=== PATIENT | male | born 1975 | race Caucasian/White ===

== ENCOUNTER 2018-07-26 03:02 | Emergency (ER) | payer OTHER ==
[2018-07-26 03:10] VITALS: BP 127/77
[2018-07-26] MEDS ORDERED: LORazepam 2 MG/ML SDV IM ONE (03:17)
[2018-07-26] MEDS ORDERED: OLANZapine 5 MG Tab PO ONE (03:25)
--- NOTE | 2018-07-26 03:25 | EDM.PDOC ---
ED HPI GENERAL MEDICAL PROBLEM - General Chief Complaint: Behavioral/Psych Stated Complaint: [facility] Time Seen by Provider: 07/26/18 03:19 Source of Information: Reports: Patient History Limitations: Reports: No Limitations - History of Present Illness INITIAL COMMENTS - FREE TEXT/NARRATIVE: 42-year-old male arrives in the ED per [facility]. 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 By history he takes olanzapine at bedtime-- dosage unknown and Prozac daily. Unclear if he is on a combination tablet. He was acting quite bizarre tonight indicating that he needed to stay away from all metals and is very concerned that he has bugs underneath his skin. He denies any street drug use such as methamphetamines. He states he has been taking his medications. He was very adamant that we test the skin sample that he provided to me indicating that a definite was not skin in that there is something crawling under his skin. He has obvious areas of both forearms were he has been picking. By history would suggest that he has bipolar affective disorder with psychotic breaks versus schizophrenia. Frustrated by the fact that we will check it is still skin sample that he provided to me under microscope. He states this is happened to him once before and they gave him a muscle relaxant and he got better. Difficult to get a good history from the patient. Onset: Unknown/Unsure Duration: Chronic Location: Reports: Generalized (Feels generalized sense of bugs crawling under his skin.) Quality: Reports: Other (formication) Severity: Moderate Improves with: Reports: None Worsens with: Reports: None Context: Reports: Other (Dropped off by the [facility] due to reported bizarre behavior in the workplace. 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 [No Known Home Meds] 07/09/16 [History] Past Medical History HEENT History: Reports: None Cardiovascular History: Reports: None Respiratory History: Reports: None Musculoskeletal History: Reports: None Endocrine/Metabolic History: Reports: None - Infectious Disease History Infectious Disease History: Reports: Chicken Pox - Past Surgical History HEENT Surgical History: Reports: None Cardiovascular Surgical History: Reports: None Musculoskeletal Surgical History: Reports: None Social & Family History - Family History Family Medical History: Noncontributory - Tobacco Use Smoking Status *Q: Current Every Day Smoker Years of Tobacco use: 22 Packs/Tins Daily: 0.5 - Caffeine Use Caffeine Use: Reports: None - Recreational Drug Use Recreational Drug Use: No - Living Situation & Occupation Living situation: Reports: Single Occupation: Employed ED [employer] GENER[employer] - Review of Systems Review Of Systems: Unable To Obtain (Unable to obtain with any degree of certainty due to the patient's irrational behavior) - Physical Exam Exam: See Below Exam Limited By: Altered Mental Status General Appearance: Alert, Moderate Distress (He wants the skin sample that he gave be tested as he is quite sure there is bones underneath his skin. Patient is suffering a psychotic break. Does not appear to be actively hallucinating at this time.) Eye Exam: Bilateral Eye: Normal Inspection Throat/Mouth: Normal Inspection, Normal Oropharynx, Other Head Exam: Atraumatic, Normocephalic (Tongue is moist.), Other Neck: Normal Inspection, Supple (No outward signs of head or neck trauma), Non- Tender, Full Range of Motion. No: Lymphadenopathy (L), Lymphadenopathy (R) Respiratory/Chest: No Respiratory Distress, Lungs Clear, Normal Breath Sounds, No Accessory Muscle Use, Chest Non-Tender Cardiovascular: Normal Peripheral Pulses, Regular Rate, Rhythm, No Edema, No Gallop, No Murmur, No Rub GI/Abdominal: Normal Bowel Sounds, Soft, Non-Tender, No Organomegaly, No Abnormal Bruit, No Mass Neuro Exam (Abbreviated): Alert, Oriented, CN II-XII Intact, Normal Gait, No Motor/Sensory Deficits. No: Normal Cognition Extremities: Normal Range of Motion, Non-Tender, Normal Capillary Refill Psychiatric: Anxious, Other (Mildly psychotic at this time with delusions. 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 picking both forearms.) Course - Vital Signs Last Recorded V/S: Last Vital Signs Temp 36.4 C 07/26/18 03:06 Pulse 88 07/26/18 03:06 Resp 12 07/26/18 03:06 BP 127/77 07/26/18 03:06 Pulse Ox 92 L 07/26/18 03:06 - Orders/Labs/Meds Orders: Active Orders 24 hr Category Date Time Status DRUG SCREEN, URINE [URCHEM] Stat Lab 07/26/18 03:27 Ordered Meds: Medications Discontinued Medications Generic Name Dose Route Start Last Admin Trade Name Noris PRN Reason Stop Dose Admin Lorazepam 2 mg 07/26/18 03:17 07/26/18 03:30 Ativan IM 07/26/18 03:18 2 mg ONETIME ONE Administration Lorazepam 2 mg 07/26/18 05:26 07/26/18 05:36 Ativan IVPUSH 07/26/18 05:27 2 mg ONETIME ONE Administration Olanzapine 10 mg 07/26/18 03:25 07/26/18 03:36 Zyprexa PO 07/26/18 03:26 10 mg ONETIME ONE Administration - Radiology Interpretation Free Text/Narrative:: 42-year-old male presents to the ED per [facility] after being 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 Apparently he was acting quite bizarre in the workplace today or tonight. He was holding would under both of his arms like one would use crutches. States he had to stay away from all metal. Was recognized by coworkers that his behavior was abnormal in the emesis summoned. His medications include olanzapine dosage unknown and Prozac daily. Apparently he has been taking his medications but is working long hours i.e. 12-16 hours per day in the [employer] and is not likely eating or drinking adequately. He denies any street drug use. The plan will be to obtain a urine drug screen. He has for the most part cooperative. He states that this is happened to him once before and he was given a shot of muscle relaxant and this made him better. Plan I will give him olanzapine 10 mg by mouth if he will take it and Ativan 2 mg IM. - Re-Assessments/Exams Free Text/Narrative Re-Assessment/Exam: 07/26/18 05:51: A coworker and friend of the patient arrived to pick him up. He indicates that Ludwni has been on medication for at least a year and to his knowledge takes his medication daily. He has appreciated that he seems to become coffee at times and becomes somewhat paranoid that the government is after him and exhibiting delusional thought processes intermittently. He appreciates this seems to occur when Ludwin does not get appropriate rest and nutrition and break from work. His friend was advised that shift work is not the best thing for this patient to be doing as he will not take his medication on a regular basis and long hours and lack of sleep will contribute to psychotic breaks. The plan at this time will be that Ludwin will be released into his friend's custody and he plans to take him back to [place] where they reside. He will be off work for the next couple of days so that he can rest and catch up on sleep. Feels she needs something more for muscle relaxation and therefore he was given another 2 mg of Ativan IM tired to leaving the department. I am suspicious that he is not taking his medication as prescribed. However his current work environment is contributing to his current delusional and paranoid ideation. His friend was advised that if his condition does not improve over the next 48 hours with rest that he will need to seek psychiatric evaluation and help most likely in [place]. The patient resides in [place] and apparently receives his medication from a physician in that state. He only gets back home about once out of every 2-3 months. Usually works 2-3 weeks per month. Departure - Departure Time of Disposition: 05:31 Disposition: Home, Self-Care 01 Condition: Fair Clinical Impression: Bipolar affective disorder, current episode hypomanic - Discharge Information *PRESCRIPTION DRUG MONITORING PROGRAM REVIEWED*: Not Applicable *COPY OF PRESCRIPTION DRUG MONITORING REPORT IN PATIENT MARQUEZ: Not Applicable Instructions: Living With Bipolar Disorder, Supporting Someone With Bipolar Disorder Referrals: PCP,None [Primary Care Provider] - Forms: ED Department Discharge, ED Return to Work/School Form Additional Instructions: Evaluation the emergency room today in regards to increased paranoid ideation and psychotic thought processes. You have been previously diagnosed with bipolar affective disorder. It is very important that you continue your current medications of Prozac and olanzapine daily as prescribed. You're currently suffering a bit of a psychotic break with delusional thinking processes that are due to not getting proper nutrition and adequate sleep. Unfortunately the type of work that you're currently doing demands long hours and sometimes limited sleep which will aggravate your current condition. In the emergency room you were treated with a dose of olanzapine 10 mg by mouth and muscle relaxant Ativan 2 mg IM 2 doses. At this time I would suggest that you [facility] [place] and take a couple days off of work and get adequate sleep and rest and then return to work. - My Orders Last 24 Hours: My Active Orders 07/26/18 03:27 DRUG SCREEN, URINE [URCHEM] Stat - Assessment/Plan Last 24 Hours: My Active Orders 07/26/18 03:27 DRUG SCREEN, URINE [URCHEM] Stat
[2018-07-26] MEDS ORDERED: LORazepam 2 MG/ML SDV IVPUSH ONE (05:26)
== END 2018-07-26 05:52 | disposition home or self-care (01) ==
LOC: JD.ED 03:02
DX: F31.0 Bipolar disorder, current episode hypomanic (principal); F17.210 Nicotine dependence, cigarettes, uncomplicated
CPT/HCPCS: 96372; 99284; A9270; J2060; 99285